=== PATIENT | male | born 1985 | race Caucasian/White ===

== ENCOUNTER 2024-05-03 20:31 | Emergency (ER) | payer SELFPAY ==
[2024-05-03 20:31] VITALS: BP 140/92; PULSE 83; RESP 16; TEMP 36.5; O2SAT 98; BMI 22.4
--- NOTE | 2024-05-03 20:47 | HMH.EDGENADL ---
Discharge Plan Disposition Patient Disposition: Home, Self-Care Condition: Good Prescriptions Prescriptions: New epinephrine 0.3 mg/0.3 mL syringe 0.3 mg IM Q10M PRN (Reason: anaphylaxis) Qty: 2 0RF Rx Instructions: for 2 doses Referrals Follow up/Referrals: Provider,Referral, MD [Primary Care Provider] - See instructions Clinical Impressions Clinical Impression: Allergic reaction Instructions Patient Instructions: DI for Rash Print Language Print Language: Kyrgyz Discharge ED Provider: Chris Beatty General Adult HPI General Chief complaint: Allergic Reaction Stated complaint: allergic reaction to bee sting Time Seen by Provider: 05/03/24 20:33 Mode of Arrival: Ambulatory Source of Information: Patient and Spouse Limitations: No Limitations Description of Symptoms (Recalled from ER Triage Doc. by RN): Pt was wedd eating when he was attacked by several bees approx 30 min ago. Hives all over body. Pt states he has never had a reaction to bee sting like this before. O2 98% on ra, states his throat feels scratchy. History of Present Illness HPI narrative: 38-year-old male presents to due to rash following bee stings approximately 30 minutes prior to arrival. Patient denies past medical history, states he has never had allergic reaction to bee stings like this before. No respiratory distress on arrival, states that his skin is itchy however denies further symptoms including vomiting, shortness of breath. Denies any other concerns at this time Please note that above description of symptoms, in this electronic medical record under categorization of recalled from ER triage doctor by RN are reflective of an initial nursing assessment, however, is not reflective of my full history and physical exam that was personally taken and clarified. Consequentially, this preceding description of symptoms, which may include the patient's categorized chief complaint in the EMR, do not reflect my personal clinical impression, and the ultimate description of history of present illness and patient stated complaints should be deferred to this section of the note. Unless stated otherwise or congruent with this section of the note, additional signs, symptoms, or incongruence should be interpreted as inaccurate with my clinical impression. Related Data Previous Rx's ?Medication ?Instructions ?Recorded epinephrine 0.3 mg/0.3 mL 0.3 mg (0.3 mL) IM Q10M PRN 05/03/24 injection syringe anaphylaxis #2 ea Allergies Allergy/AdvReac Type Severity Reaction Status Date / Time No Known Allergies Allergy Verified 05/03/24 20:47 [facility] Disclaimer: The information contained in this section may have been updated after the patient was seen, as this information can be updated by other users. Social History Smoking Status: Never smoker alcohol intake: never current occupational status: other Travel in the last 8 weeks: None ROS Obtained: Yes Systems reviewed as appropriate & no additional complaints except as documented Physical Exam General General appearance: alert and in no apparent distress Head Head exam: atraumatic and normocephalic Eye Eye exam: Present normal appearance and EOMI ENT ENT exam: Present normal exam Neck Neck exam: Present normal inspection and full ROM Chest Chest inspection: Present normal inspection and symmetric chest wall rise Respiratory Respiratory exam: Present normal lung sounds bilaterally; Absent respiratory distress, wheezes, stridor, accessory muscle use or prolonged expiratory phase Cardiovascular Cardiovascular exam: Present regular rate, normal rhythm and normal heart sounds Abdominal Exam Abdominal exam: Present soft and normal bowel sounds; Absent distention or tenderness exam: Present deferred Extremities Exam Extremities exam: Present normal inspection, full ROM and normal capillary refill; Absent tenderness Back Exam Back exam: Present normal inspection Neurological Exam Neurological exam: Present alert and oriented X3 Psychiatric Psychiatric exam: Present normal affect and normal mood Skin Skin exam: Present warm, dry, intact, normal color and rash (Erythematous maculopapular rash noted on bilateral upper extremities and chest) Medical Decision Making Medical Records Medical records reviewed: Yes I reviewed the patient's medical records. Elan Inquiry Pt receiving controlled substance: No Vital Signs: 05/03/24 20:31 05/03/24 21:30 05/03/24 22:00 Temperature 97.7 F Temperature Source Oral Pulse Rate 85 84 Pulse Rate [Left] 83 Respiratory Rate 16 16 Blood Pressure 144/98 H 147/98 H Blood Pressure [Right Arm] 140/92 H Blood Pressure Mean 107 Blood Pressure Mean [Right Arm] 108 Blood Pressure Source Blood Pressure Source [Right Arm] Automatic Cuff Blood Pressure Position Blood Pressure Position [Right Arm] Sitting 02 Sat by Pulse Oximetry 98 96 98 Oxygen Delivery Method Room Air Room Air 05/03/24 23:09 Temperature 98 F Temperature Source Oral Pulse Rate 95 H Pulse Rate [Left] Respiratory Rate 16 Blood Pressure 132/84 Blood Pressure [Right Arm] Blood Pressure Mean Blood Pressure Mean [Right Arm] Blood Pressure Source Automatic Cuff Blood Pressure Source [Right Arm] Blood Pressure Position Sitting Blood Pressure Position [Right Arm] 02 Sat by Pulse Oximetry Oxygen Delivery Method Room Air Orders (Tests/Meds): ED MEDICATIONS Discontinued Medications Generic Name Dose Route Start Last Admin Trade Name Iraida PRN Reason Stop Dose Admin Diphenhydramine HCl 50 mg 05/03/24 20:49 05/03/24 20:54 Diphenhydramine 50mg/Ml Vial IV 05/03/24 20:50 50 mg ONCE ONE Administration Ondansetron HCl 4 mg 05/03/24 20:49 05/03/24 20:54 Ondansetron 4mg/2ml Vial IV 05/03/24 20:50 4 mg ONCE ONE Administration Medical Decision Narrative: Patient with history and exam per above presenting for evaluation of allergic reaction Diagnoses considered include allergic reaction, anaphylaxis ED workup and treatment included: As above On reassessment patient remains hemodynamically stable, no respiratory decline or symptom worsening well in the ED. Following medication rash improved and resolved, patient stating that he feels better would like to go home My clinical impression at this time is most consistent with allergic reaction. At this time medically clear for discharge with outpatient follow-up with primary care provider. Have prescribed EpiPen. Given strict instructions to return to ED if symptoms worsen. Patient agreeable with plan discharged home with hemodynamically stable vitals I discussed my clinical impression with patient and answered all questions. At this time, the evidence for any other entities in the differential is insufficient to warrant any further testing or ED observation. This was explained to the patient. The patient was advised that persistent or worsening symptoms require further evaluation. Critical Care Critical Care Time Critical Care Time: No
[2024-05-03] MEDS: diphenhydrAMINE 50MG/ML VIAL 50 MG IV (20:54)
[2024-05-03] MEDS: ONDANSETRON 4MG/2ML VIAL 4 MG IV (20:54)
[2024-05-03 21:30] VITALS: BP 144/98; PULSE 85; O2SAT 96
--- NOTE | 2024-05-03 21:39 | PC.NURSE ---
Pt states he feels better after medication, spouse at bedside, no needs at this time
[2024-05-03 22:00] VITALS: BP 147/98; PULSE 84; RESP 16; O2SAT 98
[2024-05-03 23:09] VITALS: BP 132/84; PULSE 95; RESP 16; TEMP 36.6; O2SAT 98
== END 2024-05-03 23:10 | disposition home or self-care (01) ==
PROVIDERS: Emergency Provider Student in an Organized Health Care Education/Training Program
DX: T63.441A Toxic effect of venom of bees, accidental (unintentional), initial encounter (principal)
CPT/HCPCS: 96374; 96375; 99284; J1200; J2405